=== PATIENT | male | born 1985 | race Caucasian/White ===

== ENCOUNTER 2016-10-02 16:42 | Emergency (ER) | payer OTHER ==
[~2016-10-02] VITALS: Ht 188 cm; Wt 124.7 kg
[~2016-10-02 16:42] MED LIST: MOTRIN800 MG PO; PREDNISONE10 MG PO; VICODIN5-300 PO; ZANTAC 300300 MG PO
[2016-10-02 16:46] VITALS: BP 189/100
--- NOTE | 2016-10-02 18:22 | ED SKIN/ALLERGY COMPLAINT ---
History of Present Illness General Chief Complaint: Skin Rash/ Abcess Stated Complaint: ASCESS ON ABD. Source: patient Exam Limitations: no limitations Vital Signs & Intake/Output Vital Signs & Intake/Output Vital Signs Date Time Temp Pulse Resp B/P Pulse O2 O2 Flow FiO2 Ox Delivery Rate 10/02 1821 96 Room Air 10/02 1646 99.2 111 16 189/100 96 Room Air Allergies Coded Allergies: poison jm extract (SEVERE RASH 09/06/15) Reconcile Medications Ibuprofen 800 MG TABLET 1 TAB PO Q8 PRN PAIN Ranitidine Hydrochloride (Zantac 300) 300 MG TAB 1 TAB PO DAILY ACID REFLUX Sulfamethoxazole/Trimethoprim (Bactrim Ds Tablet) 800 MG-160 MG TABLET 1 TAB PO BID abscess/cellulitis Triage Note: PT STATES HE HAS AN ABCESS ON HIS ABD THAT STARTED SATURDAY. PT STATES HE DID HAVE AN INGROWN HAIR IN THE SAME PLACE IN THE PAST. Triage Nurses Notes Reviewed? yes HPI: Patient is a 30-year-old male presents complaining of abscess to the left side of his abdomen. Patient noticed an ingrown hair approximately 4 days ago. Redness and swelling gradually increasing. Pain developed over the past 1-2 days. Pain is moderate, worsens with palpation. Patient denies drainage from the area, fevers, chills, nausea, vomiting. (CELESTINA SUTHERLAND) Past History Travel History Traveled to [place] past 21 day No Medical History Any Pertinent Medical History? 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 No (CELESTINA SUTHERLAND) Review of Systems Review of Systems Constitutional: Denies: chills, fever. GI: Denies: nausea, vomiting. Skin: Reports: see HPI. Neurological/Psychological: Reports: no symptoms. Hematologic/Endocrine: Denies: bruising, bleeding. Immunologic/Allergic: Denies: splenectomy. (CELESTINA SUTHERLAND) Physical Exam Physical Exam General Appearance: well developed/nourished, alert, awake Head: atraumatic, normal appearance Eyes: Bilateral: normal appearance. Ears, Nose, Throat: hearing grossly normal Neck: normal inspection, supple, full range of motion Respiratory: no respiratory distress Gastrointestinal: 4 cm x 6 cm abscess to the left midabdomen. Positive tenderness, fluctuance, erythema. Back: normal inspection, normal range of motion Extremities: normal inspection, normal capillary refill, normal range of motion Neurologic/Psych: no motor/sensory deficits, awake, alert, oriented x 3, normal gait Skin: see abdominal exam (CELESTINA SUTHERLAND) Progress Differential Diagnosis: abscess/cellulitis Plan of Care: Orders Procedure Date/time Status TRUNK AREA CULTURE 10/02 1825 Active Microbiology 10/03 1839 TRUNK: Culture & Sensitivity - RECD 10/03 1839 TRUNK: Gram Stain - RECD Departure Departure Time of Disposition: 1842 Disposition: HOME OR SELF CARE Condition: Stable Clinical Impression Primary Impression: Abdominal abscess Referrals: PATIENT HAS NO PRIMARY CARE DR (PCP/Family) Additional Instructions: Change the dressing daily. Return to the emergency department in 2 days for recheck and packing removal. Return immediately if you develop fevers, redness spreading, or worsening of symptoms. Departure Forms: Customer Survey General Discharge Information Prescriptions: Current Visit Scripts Sulfamethoxazole/Trimethoprim (Bactrim Ds Tablet) 1 TAB PO BID #14 TAB Ibuprofen 1 TAB PO Q8 PRN PAIN #20 TAB (CELESTINA SUTHERLAND) PA/POLITICAL SCIENCE RESEARCH ASSISTANT Co-Sign Statement Statement: ED Attending supervision documentation- [] I saw and evaluated the patient. I have also reviewed all the pertinent lab results and diagnostic results. I agree with the findings and the plan of care as documented in the PA's/POLITICAL SCIENCE RESEARCH ASSISTANT's documentation. x I have reviewed the ED Record and agree with the PA's/POLITICAL SCIENCE RESEARCH ASSISTANT's documentation. [] Additions or exceptions (if any) to the PAs/POLITICAL SCIENCE RESEARCH ASSISTANT's note and plan are summarized below: [] (CARLOS SANCHEZ,CLAU) Procedures Incision and Drainage Progress: History of present with Betadine. 1% lidocaine milliliters injected the area. 1.5 cm incision made using an 11 blade scalpel. Moderate amount of purulent drainage. Blunt dissection to break up loculations. Iodoform gauze packing placed. Tolerated well by patient. (CELESTINA SUTHERLAND)
[2016-10-02] MEDS ORDERED: BACTRIM DS TAB1 EACH PO (18:44)
[2016-10-02] MEDS ORDERED: IBUPROFEN800 M1 PO (18:44)
== END 2016-10-02 18:54 ==
LOC: ERH 16:42
DX: L02.211 Cutaneous abscess of abdominal wall (principal)
CPT/HCPCS: 87184; 87070; 87147

== ENCOUNTER 2016-10-04 21:07 | Emergency (ER) | payer OTHER ==
[~2016-10-04 21:07] MED LIST changes: +BACTRIM DS TAB1 EACH PO; +IBUPROFEN800 M1 PO
--- NOTE | 2016-10-04 21:53 | ED SKIN/ALLERGY COMPLAINT ---
History of Present Illness General Chief Complaint: Suture Removal/Wound Recheck Stated Complaint: WOUND RECHECK Source: patient Exam Limitations: no limitations Vital Signs & Intake/Output Vital Signs & Intake/Output Vital Signs Date Time Temp Pulse Resp B/P B/P Pulse O2 O2 Flow FiO2 Mean Ox Delivery Rate 10/04 2321 97.8 90 22 132/72 96 10/04 2140 97.1 96 22 192/97 99 Room Air Allergies Coded Allergies: poison jm extract (SEVERE RASH 09/06/15) Reconcile Medications Ibuprofen 800 MG TABLET 1 TAB PO Q8 PRN PAIN Sulfamethoxazole/Trimethoprim (Bactrim Ds Tablet) 800 MG-160 MG TABLET 1 TAB PO BID abscess/cellulitis Triage Note: PER PT HERE FOR PACKING REMOVAL. PLACED 2 DAYS AGO Triage Nurses Notes Reviewed? yes Onset: Abrupt Duration: day(s): Timing: recent history Severity: moderate, severe No Modifying Factors: none HPI: 30-year-old male comes into emergency room for further evaluation of wound check of abscess. Patient had an abscess drained on his abdomen. It was drained by Pelon lo 2 days ago. Patient reports some increased redness. Patient feels that it feels harder. Denies any fever or vomiting. Denies any other associated symptoms. Denies any trauma. (JUDIT KERNS) Past History Travel History Traveled to [place] past 21 day No Medical History Any Pertinent Medical History? 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 No (JUDIT KERNS) Review of Systems Review of Systems Constitutional: Reports: no symptoms. EENTM: Reports: no symptoms. Respiratory: Reports: no symptoms. Cardiovascular: Reports: no symptoms. GI: Reports: no symptoms. Genitourinary: Reports: no symptoms. Musculoskeletal: Reports: no symptoms. Skin: Reports: see HPI. Neurological/Psychological: Reports: no symptoms. Hematologic/Endocrine: Reports: no symptoms. Immunologic/Allergic: Reports: no symptoms. All Other Systems: Reviewed and Negative (JUDIT KERNS) Physical Exam Physical Exam General Appearance: well developed/nourished, mild distress Head: atraumatic Eyes: Bilateral: normal appearance. Ears, Nose, Throat: normal ENT inspection, hearing grossly normal Neck: normal inspection Respiratory: no respiratory distress Cardiovascular: regular rate/rhythm Gastrointestinal: soft, large erythematous patch, packing removed, skin indurated and hard, not fluctuant, Back: normal inspection Extremities: normal inspection, normal range of motion, no edema Neurologic/Psych: awake, alert, oriented x 3, normal mood/affect Skin: intact, rash Skin Problem Character: abcess, erythema, warmth, induration, Lymphatic: no anterior cervical steven (JUDIT KERNS) Progress Differential Diagnosis: abscess/cellulitis, allergic reaction, anaphylaxis, angioedema, contact dermatitis Plan of Care: Orders Procedure Date/time Status COMPREHENSIVE METABOLIC PANEL 10/04 2146 Complete CBC WITHOUT DIFFERENTIAL 10/04 2146 Complete Laboratory Tests 10/04/160: Anion Gap 11, Estimated GFR > 60, BUN/Creatinine Ratio 13.3, Glucose 123 H, Calcium 9.0, Total Bilirubin 0.4, AST 26, ALT 56, Alkaline Phosphatase 81, Total Protein 6.9, Albumin 3.8, Globulin 3.1, Albumin/Globulin Ratio 1.2, CBC w Diff NO MAN DIFF REQ, RBC 5.28, MCV 81.0, MCH 27.2, RDW 14.1, MPV 8.1, Gran % 60.3, Lymphocytes % 29.2, Monocytes % 8.0, Eosinophils % 2.1, Basophils % 0.4, Absolute Granulocytes 9.1 H, Absolute Lymphocytes 4.4 H, Absolute Monocytes 1.2 H, Absolute Eosinophils 0.3, Absolute Basophils 0.1, PUBS MCHC 33.6 Diagnostic Imaging: Viewed by Me: CT Scan. Discussed w/RAD: CT Scan. Hand-Off Endorsed To: CLAU GONZALEZ MD Endorsed Time: 2240 Pending: CT Comments: 10/04/2016 10:41:52 PM Patient signout to Dr. gonzalez. Patient may require surgical consult. Waiting on CT scan results. (JUDIT KERNS) Radiology Impression: Note is made of soft tissue increase in the anterior abdominal wall on the right. This is in the upper abdomen. There is also a probable skin defect associated. May be minimal collection which is intimately associated with the skin defect. Measuring 1.5 x 1.6 cm in soft tissue induration extends into the fat but no other questionable collection is seen. IMPRESSION: Soft tissue induration left side of the upper abdomen anterior as described. There may the a small collection under the immediate skin surface associated with a skin defect. Otherwise soft tissue stranding extending into the mesenteric fat is noted. No other questionable collection. Comments: Patient reports decrease in size of erythema and is abscess is less firm than 2 days previous. (CLAU GONZALEZ MD) Departure Departure Condition: Stable Clinical Impression Primary Impression: Abdominal wall abscess Secondary Impressions: Cellulitis, abdominal wall Departure Forms: Customer Survey General Discharge Information (JUDIT KERNS) Departure Time of Disposition: 2343 Disposition: HOME OR SELF CARE Referrals: QUIN SANCHEZ,TON Lezama Call for surgical follow up. PA/NURSES SUPERINTENDENT Co-Sign Statement Statement: ED Attending supervision documentation- x I saw and evaluated the patient. I have also reviewed all the pertinent lab results and diagnostic results. I agree with the findings and the plan of care as documented in the PA's/NURSES SUPERINTENDENT's documentation. [] I have reviewed the ED Record and agree with the PA's/NURSES SUPERINTENDENT's documentation. [] Additions or exceptions (if any) to the PAs/NURSES SUPERINTENDENT's note and plan are summarized below: [] (CLAU GNOZALEZ MD)
[2016-10-04 22:02] LABS: ABSOLUTE BASOPHIL COUNT 0.1 /CUMM (0.0-0.2); ABSOLUTE EOSINOPHIL COUNT 0.3 /CUMM (0.0-0.7); ABSOLUTE GRANULOCYTE CT 9.1 /CUMM (1.4-6.5); ABSOLUTE LYMPH COUNT 4.4 /CUMM (1.2-3.4); ABSOLUTE MONOCYTE COUNT 1.2 /CUMM (0.10-0.60); BASOPHIL % 0.4 % (0.0-2.0); EOSINOPHIL % 2.1 % (0-5); GRANULOCYTE % 60.3 % (42.2-75.2); HEMATOCRIT 42.7 % (42-52); MEAN CORPUSCULAR HGB 27.2 PG (27.0-31.0); MEAN CORPUSCULAR HGB CONC 33.6 G/DL (33.0-37.0); MEAN PLATELET VOLUME 8.1 FL (7.4-10.4); PLATELET COUNT 280 /CUMM (130-400); RBC DISTRIBUTION WIDTH 14.1 % (11.5-14.5); RED BLOOD CELL CT 5.28 /CUMM (4.70-6.10); WHITE BLOOD CELL COUNT 15.1 /CUMM (4.8-10.8)
--- NOTE | 2016-10-04 23:17 | CT SCAN REPORT ---
EXAMINATION: CT ABDOMEN AND PELVIS WITH CONTRAST CLINICAL INFORMATION: Rule out abscess, pain, swelling COMPARISON: None TECHNIQUE: Multidetector volumetric imaging was performed of the abdomen and pelvis before and after the IV administration of 80 mL of Omnipaque 300 intravenous contrast. Sagittal and coronal reformatted images were obtained on the technologist's workstation. FINDINGS: Lung bases are grossly clear. Upper abdomen Probable fatty change within the liver. Spleen within normal limits. Region the pancreas is unremarkable. The adrenal glands within normal limits. The kidneys are in the early nephrographic phase. Within normal limits. The aorta is normal in caliber. No free fluid. The bowel pattern is normal. The pelvis ureter is nondilated into the bladder. No suspicious fluid collection. The appendix is normal. Note is made of soft tissue increase in the anterior abdominal wall on the right. This is in the upper abdomen. There is also a probable skin defect associated. May be minimal collection which is intimately associated with the skin defect. Measuring 1.5 x 1.6 cm in soft tissue induration extends into the fat but no other questionable collection is seen. IMPRESSION: Soft tissue induration left side of the upper abdomen anterior as described. There may the a small collection under the immediate skin surface associated with a skin defect. Otherwise soft tissue stranding extending into the mesenteric fat is noted. No other questionable collection.
[2016-10-04 23:21] VITALS: BP 132/72
== END 2016-10-05 ==
LOC: ERH 21:07
PROVIDERS: Physician Assistant Medical
DX: L02.211 Cutaneous abscess of abdominal wall (principal); L03.311 Cellulitis of abdominal wall
CPT/HCPCS: 74177; 96374

== ENCOUNTER 2017-11-06 21:07 | Emergency (ER) | payer OTHER ==
[~2017-11-06] VITALS: Ht 188 cm; Wt 136.1 kg
[2017-11-06 21:16] VITALS: BP 162/100
--- NOTE | 2017-11-06 22:59 | ED GENERAL ADULT ---
History of Present Illness General Chief Complaint: Upper Extremity Problem Stated Complaint: L SHOULER/ARM PAIN, UKO Source: patient Exam Limitations: no limitations Vital Signs & Intake/Output Vital Signs & Intake/Output Vital Signs Date Time Temp Pulse Resp B/P B/P Pulse O2 O2 Flow FiO2 Mean Ox Delivery Rate 11/07 2115 97.4 108 18 162/100 96 Room Air Allergies Coded Allergies: poison jm extract (SEVERE RASH 09/06/15) Reconcile Medications Ibuprofen 800 MG TABLET 1 TAB PO TID PRN PAIN Methocarbamol (Robaxin-750) 750 MG TABLET 1 TAB PO TID PRN PAIN Methylprednisolone. (Medrol) 4 MG TAB.DS.PK 1 DP PO AD NECK PAIN 6 on day 1 then reduce by one tablet daily until gone Triage Note: PT FROM HOME C/O LEFT ARM/SHOULDER PAIN X1 DAY. PT STATES HE BELIEVES HE SLEEP ON HIS NECK WRONG YESTERDAY HE AWOKE AND HAD LEFT NECK PAIN "I THINK ITS A PINCHED NERVE AND NOW IT HAS MOVED TO MY SHOULDER" PT DENIES CP, SOB, ABD PAIN, ARM NUMBNESS/TINGLING, JAW OR BACK PAIN. PT STATES THE MOST COMFORTABLE POSITION IS WHEN PT RESTS LEFT ARM ON TOP OF HIS HEAD TO ELEVATE THE ARM. PTS BP ELEVATED 162/100 MANUALLY. Triage Nurses Notes Reviewed? yes Onset: Abrupt Duration: day(s): (3), constant, continues in ED Timing: single episode today Injury Environment: home Severity: moderate, severe Severity Numbers: 8 No Modifying Factors: none Associated Symptoms: back pain HPI: 32 year old male with no medical hx presents jone eval of left sided neck back and shoudler pain. symptoms started 2-3 days ago and have been persistent. the pain seems to radiate from sherry neck into the shoudler and upper arm. it is worse with movement and certian positioning. he feels the best position is when is arm is over his head, no chest pain sob numbness tingling or trauma. he has not taken any meds. no preexisting injury. (German Saleem) Past History Travel History Traveled to [place] past 21 day No Medical History Any Pertinent Medical History? 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 No (German Saleem) Review of Systems Review of Systems Constitutional: Reports: no symptoms. EENTM: Reports: no symptoms. Respiratory: Reports: no symptoms. Cardiovascular: Reports: no symptoms. GI: Reports: no symptoms. Genitourinary: Reports: no symptoms. Musculoskeletal: Reports: see HPI, back pain, joint pain, muscle pain, muscle stiffness, neck pain. Skin: Reports: no symptoms. Neurological/Psychological: Reports: no symptoms. Hematologic/Endocrine: Reports: no symptoms. Immunologic/Allergic: Reports: no symptoms. All Other Systems: Reviewed and Negative (German Saleem) Physical Exam Physical Exam General Appearance: well developed/nourished, no apparent distress, alert, awake Head: atraumatic, normal appearance Eyes: Bilateral: normal appearance, PERRL, EOMI. Ears, Nose, Throat: hearing grossly normal Neck: normal inspection, supple, full range of motion, no midline tenderness, left cervical paraspinous and left trapezius muscles are tender to palpation no midline pain, swelling, redness, or brusing. Respiratory: normal breath sounds, chest non-tender, no respiratory distress, lungs clear Cardiovascular: regular rate/rhythm, normal peripheral pulses Peripheral Pulses: 2+ radial (R), 2+ radial (L) Gastrointestinal: soft, non-tender Back: normal inspection, normal range of motion, no vertebral tenderness Extremities: normal inspection, limited range of motion, rom of sherry left shoudler is reduced due to pain. the ant posterio deltoid is tender to palpation ,. no swelling or erythema. no tobi point tenderness of the clavicle, ac joint or scapula. full rom of the left elbow and wrist. n/v supply intact Neurologic/Psych: no motor/sensory deficits, awake, alert, oriented x 3, normal gait, normal mood/affect Skin: intact, normal color, warm/dry Lymphatic: no anterior cervical steven Core Measures ACS in differential dx? No CVA/TIA Diagnosis: No Sepsis Present: No Sepsis Focused Exam Completed? No (German Saleem) Progress Differential Diagnoses I considered the following diagnoses in my evaluation of the patient: [muscle strain, cervicasl radiculopathy, rotator cuff tendintitis/tear, herniated disc] Plan of Care: Orders Procedure Date/time Status EKG 11/06 2117 Active pt here with left neck and shoudler pain. the pain is very reporducible with rom and palpation. no numbenss or tingling. ct scan of the cervical spine is negative. pt was medicated with toradol and flexeril and is sleeping comformably ion re-eval. he reprots that his pain is much improved. rx given for medrol diose pack, robaxin, and ibuprofen, follwo up with pcp. discussed return precautions. pt agrees. Diagnostic Imaging: Viewed by Me: CT Scan. Discussed w/RAD: CT Scan. Radiology Impression: PATIENT: NADIR ZHU PRESENT AGE: 32 PATIENT ACCOUNT NO: [id number] : 85 LOCATION: [facility] ORDERING PHYSICIAN: German DILL SERVICE DATE: 11/06/17 EXAM TYPE: CAT - CT CERV SPINE WO IV CONTRAST EXAMINATION: CT CERVICAL SPINE WITHOUT CONTRAST CLINICAL INFORMATION: Neck pain. COMPARISON: None. TECHNIQUE: Contiguous helical images of the cervical spine were obtained without IV contrast. Multiplanar reconstructions were performed. FINDINGS: The cervical vertebra are in normal alignment. Disc heights and vertebral heights are well-preserved. There are no fractures. There is no prevertebral soft tissue swelling. There is opacification to the right mastoid. There is no cervical lymphadenopathy. The visualized base of the brain is unremarkable. The visualized lung apices are clear. IMPRESSION: No evidence for acute injury to the cervical spine. DICTATED BY: Leonard Sanchez MD DATE/TIME DICTATED:11/06/172316 [employer] SUPERVISOR:ISAAC DATE/TIME TRANSCRIBED:11/06/172316 CONFIDENTIAL, DO NOT COPY WITHOUT APPROPRIATE AUTHORIZATION. <Electronically signed in Other Vendor System> SIGNED BY: Leonard Sanchez MD 11/06/172325 Initial ED EKG: no ST T wave changes, sinua tach rate 100 Prior EKG: unchanged (German Saleem) Departure Departure Disposition: HOME OR SELF CARE Condition: Stable Clinical Impression Primary Impression: Left shoulder pain Qualifiers: Chronicity: acute Qualified Code: M25.512 - Pain in left shoulder Referrals: Roxanna SANCHEZ,Trenton Lyon MD,Keith Flores MD,Karri Mckinney Patient Has No Primary Care Dr (PCP/Family) Additional Instructions: Rest, avoid heavy lifting bending of physical activity. Take Medrol Dosepak as instructed for course. Tylenol as needed for pain. Robaxin as a muscle oximetry also be used every 8 hours as needed is because drowsiness. MAKE A FOLLOW UP with her primary care doctor to review results of today's visit. Monitor symptoms closely return with any concerns. Departure Forms: Customer Survey General Discharge Information Prescriptions: Current Visit Scripts Methylprednisolone. (Medrol) 1 DP PO AD #1 DP 6 on day 1 then reduce by one tablet daily until gone Methocarbamol (Robaxin-750) 1 TAB PO TID PRN PAIN #30 TAB Ibuprofen 1 TAB PO TID PRN PAIN #30 TAB (German Saleem) PA/SCHOOL RESOURCE OFFICER Co-Sign Statement Statement: ED Attending supervision documentation- I saw and evaluated the patient. I have also reviewed all the pertinent lab results and diagnostic results. I agree with the findings and the plan of care as documented in the PA's/SCHOOL RESOURCE OFFICER's documentation. x I have reviewed the ED Record and agree with the PA's/SCHOOL RESOURCE OFFICER's documentation. [] Additions or exceptions (if any) to the PAs/SCHOOL RESOURCE OFFICER's note and plan are summarized below: [] (Buzz SANCHEZ,Fred) Critical Care Note Critical Care Note Critical Care Time: non-applicable (German Saleem)
--- NOTE | 2017-11-06 23:26 | CT SCAN REPORT ---
EXAMINATION: CT CERVICAL SPINE WITHOUT CONTRAST CLINICAL INFORMATION: Neck pain. COMPARISON: None. TECHNIQUE: Contiguous helical images of the cervical spine were obtained without IV contrast. Multiplanar reconstructions were performed. FINDINGS: The cervical vertebra are in normal alignment. Disc heights and vertebral heights are well-preserved. There are no fractures. There is no prevertebral soft tissue swelling. There is opacification to the right mastoid. There is no cervical lymphadenopathy. The visualized base of the brain is unremarkable. The visualized lung apices are clear. IMPRESSION: No evidence for acute injury to the cervical spine.
[2017-11-06] MEDS ORDERED: MEDROL4 M2 PO (23:52)
[2017-11-06] MEDS ORDERED: IBUPROFEN800 M1 PO (23:52)
[2017-11-06] MEDS ORDERED: ROBAXIN-750750 M1 PO (23:52)
== END 2017-11-07 ==
LOC: ERH 21:07
DX: M25.512 Pain in left shoulder (principal); M54.2 Cervicalgia; M54.9 Dorsalgia, unspecified
CPT/HCPCS: 93005; 93010; 96372; J1885

== ENCOUNTER 2017-11-08 23:23 | Emergency (ER) | payer OTHER ==
[~2017-11-08] VITALS: Ht 188 cm; Wt 136.1 kg
[~2017-11-08 23:23] MED LIST changes: +MEDROL4 M2 PO; +ROBAXIN-750750 M1 PO
--- NOTE | 2017-11-09 01:21 | ED NECK/BACK PAIN COMPLAINT ---
History of Present Illness General Chief Complaint: General Adult Stated Complaint: SEEN 2 DAYS AGO C/C PINCHED NERVE NECK C/O PAIN Source: patient Exam Limitations: no limitations Vital Signs & Intake/Output Vital Signs & Intake/Output Vital Signs Date Time Temp Pulse Resp B/P B/P Pulse O2 O2 Flow FiO2 Mean Ox Delivery Rate 11/09 0036 98.1 89 18 159/99 96 Room Air Allergies Coded Allergies: poison jm extract (SEVERE RASH 09/06/15) Reconcile Medications Ibuprofen 800 MG TABLET 1 TAB PO TID PRN PAIN Methocarbamol (Robaxin-750) 750 MG TABLET 1 TAB PO TID PRN PAIN Methylprednisolone. (Medrol) 4 MG TAB.DS.PK 1 DP PO AD NECK PAIN 6 on day 1 then reduce by one tablet daily until gone Triage Note: PT TO ED C/O CONTINUED PAIN DOWN LEFT SIDE OF NECK, INTO L SHOULDER AND DOWN LEFT ARM. WAS SEEN FOR SAME 2 DAYS AGO. HAS BEEN TAKING MOTRIN, MUSCLE RELAXANT AND PREDNISONE WITH NO RELIEF. "I CAN'T SLEEP" Triage Nurses Notes Reviewed? 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 He returns stating that his left bicep also hurts, worse with movement. The nsaids and muscle relaxant also have helped only moderately. He is otherwise well. Past History Travel History Traveled to [place] past 21 day No Medical History Any Pertinent Medical History? 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 No Review of Systems Review of Systems Constitutional: Reports: no symptoms. Eyes: Reports: no symptoms. Ears, Nose, Throat, Mouth: Reports: no symptoms. Respiratory: Reports: no symptoms. Cardiovascular: Reports: no symptoms. Gastrointestinal/Abdominal: Reports: no symptoms. Musculoskeletal: Reports: no symptoms. Skin: Reports: no symptoms. Neurological/Psychological: Reports: no symptoms. All Other Systems: Reviewed and Negative Physical Exam Physical Exam General Appearance: well developed/nourished, no apparent distress Head: atraumatic, normal appearance Eyes: Bilateral: normal appearance. Ears, Nose, Throat, Mouth: hearing grossly normal, moist mucous membrane Neck: left upper back/neck muscle spasm and tenderness to palpation. Respiratory: normal breath sounds Cardiovascular: regular rate/rhythm Gastrointestinal: normal bowel sounds Back: normal inspection Extremities: non-tender Comments: strength dtr's, and light touch of upper extremities intact. Core Measures CVA/TIA Diagnosis: No Progress Differential Diagnosis: muscle spasm, radiculopathy vs other. Plan of Care: Current Medications Sig/Moustapha Start time Last Medication Dose Stop Time Status Admin Ketorolac 60 MG ONCE ONE 11/09 129 UNVr Tromethamine 11/09 130 (Toradol) Departure Departure Disposition: HOME OR SELF CARE Condition: Stable Clinical Impression Primary Impression: Muscle spasm Secondary Impressions: Radiculopathy Referrals: Patient Has No Primary Care Dr (PCP/Family) Departure Forms: Customer Survey General Discharge Information Comments pt with benign exam... ordered toradol.... sling given to patient.... pt safe for discharge with close follow up advised.
[2017-11-09 01:42] VITALS: BP 146/86
== END 2017-11-09 01:43 ==
LOC: ERH 23:23
DX: M62.838 Other muscle spasm (principal); M54.12 Radiculopathy, cervical region
CPT/HCPCS: 96372; J1885